=== PATIENT | female | born 1980 | race Caucasian/White ===

== ENCOUNTER 2021-11-06 08:00 | Outpatient (CLI) | payer OTHER ==
[2021-11-06 18:11] LABS: THYROID STIMULATING HORMONE 0.11 uIU/mL (0.34-5.60)
[2021-11-06 18:44] LABS: FREE T4 (FREE THYROXINE) 1.46 ng/dL (0.58-1.64)
== END 2021-11-06 08:01 | disposition home or self-care (01) ==
LOC: LAB.N 08:00
PROVIDERS: ATTEND Registered Nurse
DX: E04.1 Nontoxic single thyroid nodule (principal)
CPT/HCPCS: 36415; 84439; 84443

== ENCOUNTER 2021-12-17 14:00 | Outpatient (CLI) | payer OTHER ==
--- NOTE | 2021-12-18 10:56 | Ultrasound Report ---
PROCEDURE: Head or Neck Soft Tissue INDICATIONS: LARGE CLINICAL THYROID TECHNIQUE: Real-time scanning was performed of the thyroid gland, with image documentation. COMPARISON: None FINDINGS: Right: Thyroid lobe measures 6.5 x 1.9 x 2.5 cm, and is heterogenous in echotexture. Left: Thyroid lobe measures 6.0 x 1.3 x 2.3 cm, and is heterogenous in echotexture. Isthmus: 2.3 mm thick. Nodule number: 1 Location: Right midpole Size: 1.4 x 1.2 x 1.4 cm. Composition: Predominately solid Echogenicity: Isoechoic Shape: wider than tall. Margins: Smooth/halo Echogenic foci: Microcalcifications Total points: 6 ACR TI-RADS category: TI-RADS 4. Moderately suspicious less than 1.5 cm. Recommend follow-up ultraso und at 1, 2, 3, and 5 years Nodule number: 2 Location: Right mid/lower pole medially Size: 1.5 x 0.9 x 1.2 cm. Composition: Solid Echogenicity: Isoechoic Shape: wider than tall. Margins: Smooth Echogenic foci: None Total points: 3 ACR TI-RADS category: TI-RADS 3. Mildly suspicious measuring 1.5 cm. Recommend follow-up ultrasound at 1, 2, 3, and 5 years. Nodule number: 3 Location: Right midpole medially Size: 0.8 x 0.3 x 0.6 cm. Composition: Solid Echogenicity: Isoechoic Shape: wider than tall. Margins: Smooth Echogenic foci: None Total points: 3 ACR TI-RADS category: TI-RADS 3. Mildly suspicious less than 1.5 cm. Nodule number: 4 Location: Left midpole medially Size: 0.6 x 0.4 x 0.5 cm. Composition: Cystic Echogenicity: Anechoic Shape: wider than tall. Margins: Smooth Echogenic foci: None Total points: 0 ACR TI-RADS category: TI-RADS 1. Benign. IMPRESSION: Recommend follow-up ultrasound of the right midpole and right mid/lower pole nodules at 1, 2, 3, and 5 years. ACR TI-RADS definitions and recommendations: TI-RADS 1 (benign): 0 points. FNA not needed. TI-RADS 2 (not suspicious): 2 points. FNA not needed. TI-RADS 3 (mildly suspicious): 3 points. "FNA if 2.5 cm or larger, follow up if 1.5 cm or larger (at 1, 3, and 5 years). TI-RADS 4 (moderately suspicious): 4-6 points. "FNA if 1.5 cm or larger, follow up if 1 cm or larger (at 1, 2, 3, and 5 years). TI-RADS 5 (highly suspicious): 7 points or more. "FNA if 1 cm or larger, follow up if 0.5 cm or larger (every year for 5 years). Reviewed by: Livan Samuels on 12/18/2021 10:54 AM PDT Approved by: Livan Samuels on 12/18/2021 10:54 AM PDT Station ID: [id number]
== END 2021-12-17 14:01 | disposition home or self-care (01) ==
LOC: DI 14:00
PROVIDERS: ATTEND Registered Nurse
DX: E04.2 Nontoxic multinodular goiter (principal)

== ENCOUNTER 2022-01-16 11:28 | Outpatient (CLI) | payer OTHER ==
[2022-01-16 11:45] LABS: BASOPHILS % (AUTO) 0.4 %; EOSINOPHILS # (AUTO) 0.1 10^3/uL (0.0-0.7); EOSINOPHILS % (AUTO) 1.5 %; HCT - HEMATOCRIT 43.4 % (37.0-47.0); HGB - HEMOGLOBIN 14.7 g/dL (12.0-16.0); LYMPHOCYTES # (AUTO) 1.3 10^3/uL (1.5-3.5); LYMPHOCYTES % (AUTO) 19.6 %; MEAN CORPUSCULAR HEMOGLOBIN 29.2 pg (27.0-31.0); MEAN CORPUSCULAR HGB CONC 33.9 g/dL (32.0-36.0); MEAN CORPUSCULAR VOLUME 86.3 fL (81.0-99.0); MEAN PLATELET VOLUME 10.3 fL (7.9-10.8); MONOCYTES # (AUTO) 0.5 10^3/uL (0.0-1.0); MONOCYTES % (AUTO) 6.7 %; NEUTROPHILS # (AUTO) 4.8 10^3/uL (1.5-6.6); NEUTROPHILS % (AUTO) 71.7 %; PLT - PLATELET COUNT 343 10^3/uL (130-450); RED BLOOD COUNT 5.03 10^6/uL (4.20-5.40); RED CELL DISTRIBUTION WIDTH 12.5 % (12.0-15.0); WHITE BLOOD COUNT 6.7 x10^3/uL (4.8-10.8)
[2022-01-16 12:05] LABS: ALBUMIN 3.8 g/dL (3.2-5.5); BILIRUBIN,TOTAL 0.5 mg/dL (0.2-1.0); CALCIUM 9.4 mg/dL (8.5-10.3); CREATININE 0.8 mg/dL (0.4-1.0); CRP - C-REACTIVE PROTEIN 2.1 mg/dL (0-1.0); POTASSIUM 3.9 mmol/L (3.5-5.0); TOTAL PROTEIN 7.6 g/dL (6.7-8.2)
[2022-01-16 12:17] LABS: THYROID STIMULATING HORMONE < 0.08 uIU/mL (0.34-5.60)
[2022-01-16 12:19] LABS: FREE T3 4.15 pg/mL (2.5-3.9)
== END 2022-01-16 11:29 | disposition home or self-care (01) ==
LOC: LAB 11:28
PROVIDERS: ATTEND Physician Assistant
DX: E05.90 Thyrotoxicosis, unspecified without thyrotoxic crisis or storm (principal); K52.9 Noninfective gastroenteritis and colitis, unspecified
CPT/HCPCS: 36415; 80053; 84439; 84443; 84481; 85025; 86140

== ENCOUNTER 2022-01-19 08:00 | Outpatient (CLI) | payer OTHER ==
[2022-01-19 11:49] LABS: FECAL OCCULT BLOOD (FIT) NEGATIVE (NEGATIVE)
[2022-01-20 18:07] LABS: T-TRANSGLUTAMINASE (TTG) IGA <2 U/mL (0-3); T-TRANSGLUTAMINASE (TTG) IGG <2 U/mL (0-5)
[2022-01-22 16:08] LABS: GIARDIA LAMBLIA AG EIA Negative (Negative)
== END 2022-01-19 23:59 | disposition home or self-care (01) ==
LOC: LAB.N 08:00
PROVIDERS: ATTEND Physician Assistant
DX: K52.9 Noninfective gastroenteritis and colitis, unspecified (principal)
CPT/HCPCS: 82274; 83516; 83993; 86364; 87177; 87328; 87329

== ENCOUNTER 2022-12-26 07:55 | Outpatient (CLI) | payer OTHER ==
[2022-12-26 08:55] LABS: HCT - HEMATOCRIT 42.9 % (37.0-47.0); HGB - HEMOGLOBIN 13.8 g/dL (12.0-16.0); MEAN CORPUSCULAR HEMOGLOBIN 27.5 pg (27.0-31.0); MEAN CORPUSCULAR HGB CONC 32.2 g/dL (32.0-36.0); MEAN CORPUSCULAR VOLUME 85.6 fL (81.0-99.0); MEAN PLATELET VOLUME 10.1 fL (7.9-10.8); RED BLOOD COUNT 5.01 10^6/uL (4.20-5.40); RED CELL DISTRIBUTION WIDTH 12.3 % (12.0-15.0); WHITE BLOOD COUNT 5.6 x10^3/uL (4.8-10.8)
[2022-12-26 09:03] LABS: BILIRUBIN,URINE NEGATIVE (NEGATIVE); GLUCOSE, URINE (UA) NEGATIVE (NEGATIVE); KETONES,URINE (UA) NEGATIVE (NEGATIVE); LEUKOCYTE ESTERASE, URINE NEGATIVE (NEGATIVE); NITRITE,URINE NEGATIVE (NEGATIVE); OCCULT BLOOD,URINE NEGATIVE (NEGATIVE); PH,URINE 5.5 PH (5.0-7.5); PROTEIN,URINE NEGATIVE (NEGATIVE); UROBILINOGEN,URINE 0.2 (NORMAL) E.U./dL (NORMAL)
[2022-12-26 09:07] LABS: CLARITY,URINE CLEAR (CLEAR)
[2022-12-26 09:11] LABS: ALBUMIN 3.7 g/dL (3.2-5.5); ALBUMIN/GLOBULIN RATIO 0.9 (1.0-2.2); ALKALINE PHOSPHATASE 98 IU/L (42-121); ALT ALANINE AMINOTRANSFERASE 43 IU/L (10-60); AST ASPARTATE AMINOTRANSFERASE 24 IU/L (10-42); BILIRUBIN,TOTAL 0.6 mg/dL (0.2-1.0); BUN - BLOOD UREA NITROGEN 14 mg/dL (6-20); CALCIUM 9.3 mg/dL (8.5-10.3); CARBON DIOXIDE - CO2 25 mmol/L (21-32); CHLORIDE 109 mmol/L (101-111); CHOL/HDL RATIO 4.3 (<4.4); CHOLESTEROL 191 mg/dL; CREATININE 0.6 mg/dL (0.4-1.0); GFR - MDRD 109 (>89); GLUCOSE 111 mg/dL (70-100); HDL CHOLESTEROL 44 mg/dL; LDL CHOLESTEROL,CALCULATED 113 mg/dL; LDL/HDL RATIO 2.6 (<4.4); POTASSIUM 4.1 mmol/L (3.5-5.0); SODIUM 140 mmol/L (135-145); TOTAL PROTEIN 7.6 g/dL (6.7-8.2); TRIGLYCERIDES 168 mg/dL; VLDL CHOLESTEROL 34 mg/dL
[2022-12-26 09:20] LABS: BACTERIA,URINE Many /HPF (None Seen); MUCUS,URINE Few Strands; RBC,URINE 0-5 /HPF (0-5); SQUAMOUS EPITHELIAL CELL,UR FEW Squamous (<= Few)
== END 2022-12-26 07:56 | disposition home or self-care (01) ==
LOC: LAB 07:55
PROVIDERS: ATTEND Internal Medicine
DX: K58.8 Other irritable bowel syndrome (principal); Z79.899 Other long term (current) drug therapy
CPT/HCPCS: 36415; 80053; 80061; 81001; 83721; 84443; 85027

== ENCOUNTER 2022-12-26 08:03 | Outpatient (CLI) | payer OTHER | END 2022-12-26 08:04 | disposition home or self-care (01) | LOC: RT 08:03 | PROVIDERS: ATTEND Internal Medicine | DX: R03.0 Elevated blood-pressure reading, without diagnosis of hypertension (principal) | CPT/HCPCS: 93005 ==

== ENCOUNTER 2023-01-07 06:43 | Outpatient (CLI) | payer OTHER ==
--- NOTE | 2023-01-07 13:52 | Ultrasound Report ---
PROCEDURE: Abdomen Complete INDICATIONS: IRRITABLE BOWEL SYNDROME, FATIUGE, THYROTOXICOSIS TECHNIQUE: Real-time scanning was performed of the abdominal and retroperitoneal organs, with image documentatio n. COMPARISON: None. FINDINGS: Liver: The liver demonstrates diffusely increased echotexture without focal abnormalities which is c onsistent with chronic hepatocellular disease/hepatic steatosis. Gallbladder: Gallbladder contains a 1.8 cm mobile gallstone. No evidence for gallbladder wall thicken ing. No pericholecystic fluid. Negative sonographic Ghotra's. Biliary ducts: Intrahepatic bile ducts are non-dilated. Extrahepatic bile duct caliber measures 5 m m. Normal is 6-7 mm or less in diameter, or 10 mm or less post-cholecystectomy. Pancreas: Visualized portions of the pancreas are sonographically normal. Spleen: Spleen is normal in size and homogeneous in echotexture. Kidneys: Kidneys are normal in size and echotexture. Right kidney measures 10.1 cm long; left kidne y measures 10.3 cm long. No hydronephrosis or nephrolithiasis. No solid masses. No complex renal cy stic lesions which require follow-up. Aorta: Visualized aorta is normal in caliber at less than 3 cm. Iliacs: Proximal common iliac arteries are normal in caliber at less than 2.5 cm. IVC: Intrahepatic inferior vena cava is patent. Miscellaneous: No free abdominal fluid. IMPRESSION: Diffusely echogenic liver parenchyma likely related to hepatic steatosis versus other chronic hepatoc ellular disease. Recommend clinical correlation. Cholelithiasis without sonographic evidence for acute cholecystitis. Reviewed by: Jim Rodriguez MD on 01/07/2023 1:51 PM PDT Approved by: Jim Rodriguez MD on 01/07/2023 1:51 PM PDT Station ID: [id number]
--- NOTE | 2023-01-07 15:22 | Ultrasound Report ---
PROCEDURE: Head or Neck Soft Tissue INDICATIONS: IRRITABLE BOWEL SYNDROME, FATIUGE, THYROTOXICOSIS TECHNIQUE: Real-time scanning was performed of the thyroid gland, with image documentation. COMPARISON: Thyroid ultrasound 12/17/2021 FINDINGS: Right: Thyroid lobe measures 6.3 x 1.9 x 2.5 cm, and is homogeneous in echotexture. Left: Thyroid lobe measures 5.7 x 1.4 x 1.9 cm, and is homogenous in echotexture. Isthmus: 0.3 cm thick. Nodule number: One Location: Right mid Size: 1.4 x 1.3 x 1.1 cm, not significantly changed Composition: Solid (2 points). Echogenicity: Isoechoic (1 point). Shape: wider than tall. Margins: Smooth (0 points). Echogenic foci: Macrocalcification (1 point). Total points: 4 ACR TI-RADS category: Moderately suspicious (4-6 points). Nodule number: Two Location: Right mid to lower pole Size: 1.3 x 0.9 x 0.9 cm, not significantly changed Composition: Predominantly solid (2 points). Echogenicity: Hyperechoic (1 point). Shape: wider than tall. Margins: Smooth (0 points). Echogenic foci: None (0 points). Total points: 3 ACR TI-RADS category: Mildly suspicious. Nodule number: Three Location: Right mid thyroid medially Size: 0.8 x 0.4 x 0.7 cm, not significant changed Composition: Solid (2 points). Echogenicity: Hypoechoic (2 points). Shape: wider than tall. Margins: Smooth (0 points). Echogenic foci: None (0 points). Total points: 4 ACR TI-RADS category: Moderately suspicious (4-6 points). Nodule number: Four Location: Left mid Size: 0.6 x 0.3 x 0.5 cm, not significantly changed. Composition: Cystic / almost completely cystic (0 points). Echogenicity: Anechoic (0 points). Shape: wider than tall. Margins: Smooth (0 points). Echogenic foci: None (0 points). Total points: 0 ACR TI-RADS category: Benign (0 points). IMPRESSION: Stable bilateral thyroid nodules. Recommend continued imaging follow-up. ACR TI-RADS definitions and recommendations: TI-RADS 1 (benign): 0 points. FNA not needed. TI-RADS 2 (not suspicious): 2 points. FNA not needed. TI-RADS 3 (mildly suspicious): 3 points. "FNA if 2.5 cm or larger, follow up if 1.5 cm or larger (at 1, 3, and 5 years). TI-RADS 4 (moderately suspicious): 4-6 points. "FNA if 1.5 cm or larger, follow up if 1 cm or larger (at 1, 2, 3, and 5 years). TI-RADS 5 (highly suspicious): 7 points or more. "FNA if 1 cm or larger, follow up if 0.5 cm or larger (every year for 5 years). Reviewed by: Derik Ryan MD on 01/07/2023 3:21 PM PDT Approved by: Derik Ryan MD on 01/07/2023 3:21 PM PDT Station ID: [id number]
== END 2023-01-07 06:44 | disposition home or self-care (01) ==
LOC: DI 06:43
PROVIDERS: ATTEND Internal Medicine
DX: R53.83 Other fatigue (principal); K58.8 Other irritable bowel syndrome; E05.90 Thyrotoxicosis, unspecified without thyrotoxic crisis or storm; E03.9 Hypothyroidism, unspecified; K80.20 Calculus of gallbladder without cholecystitis without obstruction